=== PATIENT | male | born 1955 | race Caucasian/White ===

== ENCOUNTER 2021-12-22 09:39 | Outpatient (CLI) | payer MEDICARE, BC, SELFPAY ==
[2021-12-22 11:27] LABS: Cholesterol* 167 mg/dL (90-199); HDL Cholesterol* 52 mg/dL (>=40); LDL Cholesterol Calculated 100 mg/dL (<100); Triglycerides* 76 mg/dL (40-149)
[2021-12-22 11:59] LABS: PSA Screen* 0.53 ng/mL (0.10-4.00)
[2021-12-23 10:23] LABS: Glucose* 102 mg/dL (60-115)
== END 2021-12-22 09:40 | disposition home or self-care (01) ==
PROVIDERS: PCP Family Medicine; Visit Provider Family Medicine
DX: Z00.00 Encounter for general adult medical examination without abnormal findings (principal); Z13.1 Encounter for screening for diabetes mellitus; Z12.5 Encounter for screening for malignant neoplasm of prostate; Z13.6 Encounter for screening for cardiovascular disorders
CPT/HCPCS: 80061; 82947; 84153

== ENCOUNTER 2022-09-20 13:23 | Emergency (ER) | payer MEDICARE, BC, SELFPAY ==
[2022-09-20] VITALS (11 sets, daily range): BP systolic 129–158; BP diastolic 90–100; PULSE 57–69; RESP 16; TEMP 36.7; O2SAT 96–100; BMI 27.6
--- NOTE | 2022-09-20 14:24 | ED_ITS ---
HPI - Dizziness General Time Seen by Provider: 14:24 Date Seen: 09/20/22 Chief Complaint: Dizziness/Vertigo Stated Complaint: Dizzy Time Seen by Provider: 09/20/22 13:31 Source: patient and RN notes reviewed Mode of arrival: ambulatory Limitations: no limitations History of Present Illness HPI Narrative: Patient is a 67-year-old male coming to the ER with complaint of dizziness that was bothering him today. His has a blood pressure cuff, she checked his at home after he is complaining of feeling dizzy, with this had a sense of imbalance, denied any sense of spinning sensation at home. She found his blood pressure to be 159/102 I believe. States his blood pressure is never been that elevated before. Remembers last summer when he was in for a physical it was maybe 120. He is not on any medications. Has never been diagnosed with hypertension, he believes his LDL to be around 100 and his HDL to be around 50 when it has been checked before, no diagnosis of hyperlipidemia. He has had no cardiac history before not during any of this did he have any sense of anything in his chest. He states there is no palpitations, no chest pain, no regular hea rtbeat. He never felt any respiratory symptoms with it. He is feeling a bit better now. When he was feeling dizzy at home he had a sense of maybe slight imbalance. He absolutely denied vertigo at home. However, when he was lying here on the ER bed with his head closed and reclining back, he did feel a sense of spinning sensation per his report. Gone when I am talking to him. He was able to complete crossword puzzle in the lobby waiting to come back. He notes no visual changes, double vision, no blurry vision. No headaches, no head trauma. No numbness tingling weakness anywhere. Speech is been good throughout. He has never smoked tobacco but states he has a significant marijuana history. He notes looking at a picture in the bathroom when he was feeling this way, the picture just looked more intense. He walks about 6 miles 5 times a week. As far as family history, dad is in his 90s and Mom is in late 80s. He believes his mom is had arrhythmia issues, both parents may have had a blood pressure and cholesterol issues. His dad had malignant melanoma removed. There are no strokes, no ischemic disease that he is aware of. elicited complaint: dizziness and disequilibrium Related Data Home Medications Medication Instructions Recorded Confirmed No Known Home Medications 12/22/21 09/20/22 Allergies Allergy/AdvReac Type Severity Reaction Status Date / Time No Known Allergies Allergy Verified 09/20/22 13:34 Review of Systems Status of ROS: Reports: 10 or more systems reviewed and unremarkable except as noted in History and below PFSH PFSH Family History Father Melanoma Mother No problems noted. Social History Narrative: SOCIAL HISTORY: He is without children. 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 He exercises almost daily doing walking/biking. [employer] clubs, yoga. HABITS: No tobacco or alcohol. marijuana gummies 2-3 times per week because he enjoys it. It helped his creative side and he enjoys painting. FAMILY HISTORY: Father diagnosed with melanoma. Smoking Status: Never smoker Do you use any of these nicotine containing products: None Second hand tobacco smoke exposure: No How often do you have a drink containing alcohol: never AUDIT-C Alcohol total score: 0 Non-prescribed substance use: marijuana (any form) Little interest or pleasure in doing things: several days Feeling down, depressed, or hopeless: several days Exam Const: Vital Signs, click to edit/add: Vital Signs - 24 hr 09/20/22 13:31 09/20/22 14:36 Temperature 98.1 F Pulse Rate [Pulse Oximeter] 62 Respiratory Rate 16 Blood Pressure [Ri ght Upper Arm] 158/100 H Pulse Oximetry 96 99 Oxygen Delivery Me thod Room Air Documenting provider has reviewed patient's vital signs: yes Common normals: no apparent distress, average body habitus, oriented x3, no limitations, healthy appearing, alert and well nourished General appearance: cooperative, comfortable, well kempt and well developed HENMT: Common normals: normocephalic, head/scalp atraumatic, hearing grossly normal bilaterally (Has bilateral hearing aids in) and external ears normal Head and scalp: normocephalic and atraumatic External ear: external ears norm al Eye: Common normals: PERRL, EOMs intact bilaterally, conjunctivae normal and no scleral icterus Conjunctiva: conjunctiva(e) normal Pupil: PERRL Neck & C-Spine: Common normals: full ROM, no lymphadenopathy, supple, no meningeal signs, no JVD and thyroid normal Thyroid: thyroid normal Resp: Common normals: normal respiratory effort, no retractions, no use of accessory muscles and clear to auscultation bilaterally Auscultation: clear to auscultation bilaterally Cardio: Common normals: no JVD GI: Common normals: Normal to inspection, nondistended, normoactive bowel sounds present, soft to palpation, non-tender, no hepatosplenomegaly and no masses Palpation: soft and no hepatosplenomegaly Extremity: Other: No lower extremity edema Neuro: Common normals: oriented x3, moves all extremities, no focal motor deficits, no sensory deficits noted and gait normal Sensorium/orientation: alert Meningeal signs: no meningeal signs Speech: speech normal Psych: Appearance: well kempt Course Course Hospital Course: Patient's systolic blood pressure is 135 when I went in, next blood pressure was 150s over 90s. Did review with him that he certainly may be developing hypertension. Will get appropriate labs, have him on cardiac monitoring and pulse oximetry. We discussed head CT which he would like to proceed with. NIH currently is 0. I do not think that this is stroke pathology but will ensure no changes with the CT of his head. Will see how he is feeling in a bit. Reevaluation(s) Reevaluation #1: Have reviewed patient's normal workup. He is feeling better. Blood pressure is 129/90 currently. We are going to discharge to home for further ongoing outpatient evaluation and have him schedule follow-up in clinic. He will monitor blood pressure at home. Time: 16:12 Vital Signs Vital signs: Initial Vital Signs Temperature 98.1 F 09/20/22 13:31 Temperature Source Temporal Artery Scan 09/20/22 13:31 Pulse Rate 62 09/20/22 13:31 Respiratory Rate 16 09/20/22 13:31 Blood Pressure 158/100 H 09/20/22 13:31 Blood Pressure Mean 119 H 09/20/22 13:31 Blood Pressure Position Sitting 09/20/22 13:31 Pulse Oximetry 96 09/20/22 13:31 Oxygen Delivery Method Room Air 09/20/22 13:31 Vital Signs Temperature 98.1 F 09/20/22 13:31 Pulse Rate 62 09/20/22 13:31 Respiratory Rate 16 09/20/22 13:31 Blood Pressure 158/100 H 09/20/22 13:31 Pulse Oximetry 96 09/20/22 13:31 Oxygen Delivery Method Room Air 09/20/22 13:31 Temperature 98.1 F 09/20/22 13:31 Pulse Rate 62 09/20/22 13:31 Respiratory Rate 16 09/20/22 13:31 Blood Pressure 158/100 H 09/20/22 13:31 Pulse Oximetry 99 09/20/22 14:36 Oxygen Delivery Method Room Air 09/20/22 13:31 MDM - Dizziness Lab Data Attestation: I reviewed the patient's lab results. Labs: Lab Results 09/20/22 Range/Units 15:05 WBC 4.88 (4.50-11.00) K/uL RBC 5.21 (4.30-5.90) m/uL Hgb 15.4 (13.5-17.5) gm/dL Hct 45.2 (37.0-53.0) % MCV 87 (80-100) fL MCH 30 (26-34) pg MCHC 34 (32-36) gm/dL RDW Coeff of Hannah 12.3 (11.5-15.5) % Plt Count 185 (140-440) K/uL Neut % (Auto) 71.1 (42.0-72.0) % Lymph % (Auto) 20.5 (20-44) % Dare % (Auto) 7.2 (0.0-11.0) % Eos % (Auto) 0.8 (0.0-7.0) % Baso % (Auto) 0.4 (0.0-3.0) % Neut # (Auto) 3.47 (1.7-7.0) K/uL Lymph # (Auto) 1.00 (0.90-2.90) K/uL Dare # (Auto) 0.40 (0.00-0.90) K/UL Eos # (Auto) 0.04 (0.00-0.50) K/uL Baso # (Auto) 0.02 (0.00-0.30) K/uL Sodium 138 (135-149) mmol/L Potassium 4.4 (3.6-5.1) mmol/L Chloride 103 (96-114) mmol/L Carbon Dioxide 29 (20-32) mmol/L BUN 17 (7-30) mg/dL Creatinine 0.9 (0.5-1.5) mg/dL Estimated Creat Clear 76.35 Estimated GFR 94 ml/min Glucose 95 (60-115) mg/dL Calcium 9.6 (8.4-10.6) mg/dL Total Bilirubin 1.5 (0.1-1.5) mg/dL AST 29 (12-35) U/L ALT 31 (4-50) U/L Alkaline Phosphatase 70 (40-150) U/L Total Protein 7.4 (6.0-8.3) g/dL Albumin 4.7 (3.3-5.0) g/dL Imaging Data CT scan - head: Attestation: I have reviewed the pertinent imaging results. Radiologist's impression: Patient: CHALINO GONZALEZ Facility:?[facility] Patient ID:?[id number] Site Patient ID:?[id number]. Site :?[id number] Study:?CT Head w/o Contrast-09/20/2022 3:04:00 PM Ordering Physician:Eric Bedoya Final Report: INDICATION: Dizzy TECHNIQUE: Noncontrast axial CT of the head. Coronal and sagittal reformats. Bone and soft tissue algorithms. COMPARISON: No relevant comparison studies available at this institution. FINDINGS: The ventricles and cortical sulci are mildly prominent. No midline shift, hydrocephalus, or herniation. No acute intracranial hemorrhage or abnormal extra-axial fluid collection. Thomas-white matter differentiation is grossly maintained. White matter attenuation appears within normal limits. Incidental prominent perivascular space along the inferior left basal ganglia. There is partial empty sella configuration. The midline structures are otherwise unremarkable. There is mild calcific intracranial atherosclerotic plaquing. The bony calvarium appears grossly intact. Lobulated mucosal thickening is noted throughout the bilateral maxillary and ethmoid sinuses. The mastoid air cells are clear. The included orbits are unremarkable. IMPRESSION: 1. No CT evidence of acute intracranial abnormality. 2. Mild generalized cerebral volume loss. 3. Lobulated maxillary and ethmoid sinus mucosal thickening, suggestive of mucous retention cysts/polyps. Please note that all CT scans at this facility use dose modulation, iterative reconstruction, and/or weight-based dosing when appropriate to reduce radiation dose to as low as reasonably achievable. Dictated by Mei Sanchez MD @ 09/20/2022 3:20:46 PM (Electronic Signature) Critical Care Time Critical Care Time Critical Care Time: No Discharge Plan Discharge Clinical Impression: Elevated blood pressure reading, Dizziness Patient Disposition: Home, Self-Care Condition: Improved Instructions: Low-Sodium Diet (ED), Hypertension (ED), Dizziness (ED) Additional Instructions: Recommend monitoring your blood pressure at home, record values and take to follow-up visit. Would like you to get a follow-up in clinic certainly within the next week to recheck blood pressure. If your values are remaining elevated, you could be developing hypertension. Lifestyle modification is always recommended, have given you handout on low sodium to start with. If at any point to have increase in dizziness, developed spinning or vertigo, have any neurologic symptoms concerning for stroke, any associated chest pain or shortness of breath, do recommend return to the ED for further evaluation in the interim. Activity Level: Activity as Tolerated Discharge Diet: Heart Healthy (2 gm sodium, low fat) Prescriptions: No Action No Known Home Medications Follow Up/Referrals: Remy Calvo MD [Primary Care Provider] - Stand Alone Forms: [employer] Info Instructions
--- NOTE | 2022-09-20 14:36 | CRLHL7_ITS ---
For Patients: As a result of the Century Cures Act, medical imaging exams and procedure reports are released immediately into your electronic medical record. You may view this report before your referring provider. If you have questions, please contact your health care provider. INDICATION: Dizzy TECHNIQUE: Noncontrast axial CT of the head. Coronal and sagittal reformats. Bone and soft tissue algorithms. COMPARISON: No relevant comparison studies available at this institution. FINDINGS: The ventricles and cortical sulci are mildly prominent. No midline shift, hydrocephalus, or herniation. No acute intracranial hemorrhage or abnormal extra-axial fluid collection. Thomas-white matter differentiation is grossly maintained. White matter attenuation appears within normal limits. Incidental prominent perivascular space along the inferior left basal ganglia. There is partial empty sella configuration. The midline structures are otherwise unremarkable. There is mild calcific intracranial atherosclerotic plaquing. The bony calvarium appears grossly intact. Lobulated mucosal thickening is noted throughout the bilateral maxillary and ethmoid sinuses. The mastoid air cells are clear. The included orbits are unremarkable. IMPRESSION: 1. No CT evidence of acute intracranial abnormality. 2. Mild generalized cerebral volume loss. 3. Lobulated maxillary and ethmoid sinus mucosal thickening, suggestive of mucous retention cysts/polyps. Please note that all CT scans at this facility use dose modulation, iterative reconstruction, and/or weight-based dosing when appropriate to reduce radiation dose to as low as reasonably achievable. Dictated by Mei Sanchez MD @ 09/20/2022 3:20:46 PM (Electronically Signed)
[2022-09-20 15:31] LABS: Basophils Absolute Auto 0.02 K/uL (0.00-0.30); Basophils Percent Auto 0.4 % (0.0-3.0); Eosinophils Absolute Auto 0.04 K/uL (0.00-0.50); Eosinophils Percent Auto 0.8 % (0.0-7.0); Hematocrit 45.2 % (37.0-53.0); Hemoglobin* 15.4 gm/dL (13.5-17.5); Lymphocytes Percent Auto 20.5 % (20-44); Mean Corpuscular HGB Conc 34 gm/dL (32-36); Mean Corpuscular Hemoglobin 30 pg (26-34); Mean Corpuscular Volume 87 fL (80-100); Monocytes Percent Auto 7.2 % (0.0-11.0); Neutrophils Absolute Auto 3.47 K/uL (1.7-7.0); Neutrophils Percent Auto 71.1 % (42.0-72.0); Platelet Count* 185 K/uL (140-440); RDW Coefficient of Variation % 12.3 % (11.5-15.5); Red Blood Count 5.21 m/uL (4.30-5.90); White Blood Count* 4.88 K/uL (4.50-11.00)
[2022-09-20 15:35] LABS: Albumin* 4.7 g/dL (3.3-5.0); Chloride* 103 mmol/L (96-114); Potassium* 4.4 mmol/L (3.6-5.1); Slide Review Reflex No; Sodium* 138 mmol/L (135-149)
[2022-09-20 15:37] LABS: Bilirubin Total* 1.5 mg/dL (0.1-1.5); Carbon Dioxide* 29 mmol/L (20-32); Creatinine* 0.9 mg/dL (0.5-1.5); Est. Creatinine Clearance* 76.35; Estimated Glomerular Filt Rate 94 ml/min
[2022-09-20 15:38] LABS: Alanine Aminotransferase* 31 U/L (4-50); Alkaline Phosphatase* 70 U/L (40-150); Aspartate Amino Transferase* 29 U/L (12-35); Blood Urea Nitrogen* 17 mg/dL (7-30); Calcium* 9.6 mg/dL (8.4-10.6); Glucose* 95 mg/dL (60-115); Total Protein* 7.4 g/dL (6.0-8.3)
== END 2022-09-20 16:23 | disposition home or self-care (01) ==
PROVIDERS: Emergency Provider Family Medicine; PCP Family Medicine
DX: R42 Dizziness and giddiness (principal); R03.0 Elevated blood-pressure reading, without diagnosis of hypertension
CPT/HCPCS: 36415; 70450; 80053; 85025; 93005; 94761; 99284; 99285

== ENCOUNTER 2022-11-24 19:14 | Emergency (ER) | payer MEDICARE, BC, SELFPAY ==
[2022-11-24 19:24] VITALS: BP 129/85; PULSE 82; RESP 18; TEMP 36.9; O2SAT 95; BMI 27.9
--- NOTE | 2022-11-24 19:44 | ED.GENADULT ---
HPI - General Adult General Chief complaint: Unspecified Complaint, Adult Stated complaint: Covid+ wants a prescription Tired Time Seen by Provider: 11/24/22 19:29 History of Present Illness HPI narrative: This 67-year-old male comes in stating that he took a home test for COVID yesterday which turned positive. He comes in requesting a prescription for Paxil of id. He does not have any cough or shortness of breath. His primary symptoms are loss of sense of taste and smell and generalized fatigue. He states that he has been sleeping a lot over the last day or so. He does not report any fevers. He states that he is not on any other medications and otherwise is in good health. Related Data Previous Rx's Medication Instructions Recorded nirmatrelvir 150 mg-ritonavir 100 See Rx Instructions PO .COMPLEX 11/24/22 mg tablets in a dose pack #20 ea (Paxlovid) Allergies Allergy/AdvReac Type Severity Reaction Status Date / Time No Known Allergies Allergy Verified 11/24/22 19:26 Review of Systems Status of ROS: Reports: 10 or more systems reviewed and unremarkable except as noted in History and below Narrative: Constitutional: No fevers, no weight gain or loss. Eyes: No discharge. No vision changes. HENT: No congestion, no sore throat, no ear pain. Cardiovascular: No chest pain, no palpitations. Respiratory: No shortness of breath, no wheezes, no cough. Gastrointestinal: No abdominal pain, no vomiting, no diarrhea. Genitourinary: No dysuria, no hematuria. Musculoskeletal: Normal range of motion. Skin: No rashes, no pruritis. Neurological: No dizziness, weakness, speech change. He reports a loss of sense of taste and smell. Endo/Heme/Allergies: No bruising or bleeding. No polydipsia. Pysch: no suicidality, no anxiety, no insomnia. All other systems reviewed and are negative. PFSH PFSH Family History Father Melanoma Mother No problems noted. Social History Narrative: SOCIAL HISTORY: He is without children. 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 He exercises almost daily doing walking/biking. clubs, yoga. HABITS: No tobacco or alcohol. marijuana gummies 2-3 times per week because he enjoys it. It helped his creative side and he enjoys painting. FAMILY HISTORY: Father diagnosed with melanoma. Smoking Status: Never smoker Do you use any of these nicotine containing products: None Second hand tobacco smoke exposure: No How often do you have a drink containing alcohol: never AUDIT-C Alcohol total score: 0 Non-prescribed substance use: marijuana (any form) Little interest or pleasure in doing things: several days Feeling down, depressed, or hopeless: several days Exam Narrative: Exam Narrative: Constitutional: Well-developed, well-nourished, no acute distress. HEENT: Normocephalic, atraumatic. Neck: Normal range of motion. Nontender. Supple. Heart: Regular. No murmurs. Normal rate. Intact distal pulses. Lungs: Clear to auscultation. No chest discomfort. No wheezes, rhonchi, or rales. Abdomen: Normal bowel sounds. Nontender. No rebound tenderness. Genitalia: Deferred. Back: No midline tenderness. Normal range of motion. Extremities: Normal range of motion. No injury. Skin: Intact. No rash. Warm. No erythema or pallor. Neurologic: No altered sensation. No weakness. Alert and oriented. Psychiatric: No suicidality. No anxiety or depression. No insomnia. Nursing notes and vitals signs are reviewed. Const: Vital Signs, click to edit/add: Vital Signs - 24 hr 11/24/22 19:24 Temperature 98.5 F Pulse Rate [Right Pulse Oximeter] 82 Respiratory Rate 18 Blood Pressure [Ri ght Upper Arm] 129/85 Pulse Oximetry 95 Oxygen Delivery Me thod Room Air Course Vital Signs Vital signs: Initial Vital Signs Temperature 98.5 F 11/24/22 19:24 Temperature Source Temporal Artery Scan 11/24/22 19:24 Pulse Rate 82 11/24/22 19:24 Respiratory Rate 18 11/24/22 19:24 Blood Pressure 129/85 11/24/22 19:24 Blood Pressure Mean 99 11/24/22 19:24 Blood Pressure Position Sitting 11/24/22 19:24 Pulse Oximetry 95 11/24/22 19:24 Oxygen Delivery Method Room Air 11/24/22 19:24 Vital Signs Temperature 98.5 F 11/24/22 19:24 Pulse Rate 82 11/24/22 19:24 Respiratory Rate 18 11/24/22 19:24 Blood Pressure 129/85 11/24/22 19:24 Pulse Oximetry 95 11/24/22 19:24 Oxygen Delivery Method Room Air 11/24/22 19:24 Temperature 98.5 F 11/24/22 19:24 Pulse Rate 82 11/24/22 19:24 Respiratory Rate 18 11/24/22 19:24 Blood Pressure 129/85 11/24/22 19:24 Pulse Oximetry 95 11/24/22 19:24 Oxygen Delivery Method Room Air 11/24/22 19:24 Medical Decision Making MDM Narrative Medical decision making narrative: This patient arrives reporting a positive test for COVID that was performed at home yesterday. He is requesting a prescription for Paxil of id. His exam and vital signs are normal today. He is not showing any sign of respiratory distress. A prescription for Paxil of it is provided. I did describe signs and symptoms that indicate a need for return and re-evaluation. Discharge Plan Discharge Clinical Impression: COVID-19 Patient Disposition: Home, Self-Care Condition: Stable Additional Instructions: Take medication as prescribed. Use [id number] medicines also as needed and directed. Return if worsening symptoms happen. Prescriptions: New Paxlovid 150-100 mg tablets,dose pack See Rx Instructions PO .COMPLEX Qty: 20 0RF Rx Instructions: orally per package directions Follow Up/Referrals: Remy Calvo MD [Primary Care Provider] - Stand Alone Forms: [employer] Info Instructions
[2022-11-24 20:00] VITALS: BP 124/84; PULSE 79; RESP 18; TEMP 36.9; O2SAT 95
== END 2022-11-24 19:54 | disposition home or self-care (01) ==
PROVIDERS: Emergency Provider Emergency Medicine Emergency Medical Services; PCP Family Medicine
DX: U07.1 COVID-19 (principal)
CPT/HCPCS: 99283; 99284

== ENCOUNTER 2023-04-18 08:31 | Outpatient (CLI) | payer MEDICARE, BC, SELFPAY | END 2023-04-18 08:32 | disposition home or self-care (01) | LOC: NFLDREF 04-19 22:06 | PROVIDERS: PCP Family Medicine; Referring Provider Family Medicine; Visit Provider Family Medicine | DX: R73.03 Prediabetes (principal) | CPT/HCPCS: 82947 ==

== ENCOUNTER 2023-05-03 09:27 | Outpatient (CLI) | payer MEDICARE, BC, SELFPAY ==
--- NOTE | 2023-05-03 09:45 | CRLHL7_ITS ---
For Patients: As a result of the Cures Act, medical imaging exams and procedure reports are released immediately into your electronic medical record. You may view this report before your referring provider. If you have questions, please contact your health care provider. Indication: Abdominal aortic aneurysm screening Comparison: None available. Technique: Real-time and grayscale and color Doppler imaging was performed of the abdominal aorta and bilateral common iliac arteries. Findings: The proximal abdominal aorta was not well visualized due to shadowing from bowel gas. The mid and distal abdominal aorta measure 2.0 x 1.8, and 1.8 x 1.7 cm respectively in the AP and transverse dimensions. The right and left iliac artery were measured at 1.5 x 1.3 and 1.5 x 1.5 cm respectively. Impression: No sonographic evidence of abdominal aortic aneurysm although the suprarenal portion could not be visualized due to shadowing from bowel gas. Dictated by Carlos Griffin MD @ 05/03/2023 8:50:10 PM (Electronically Signed)
== END 2023-05-03 09:28 | disposition home or self-care (01) ==
LOC: US 09:27
PROVIDERS: PCP Family Medicine; Visit Provider Family Medicine
DX: Z13.6 Encounter for screening for cardiovascular disorders (principal)
CPT/HCPCS: 76706

== ENCOUNTER 2024-12-03 09:35 | Outpatient (CLI) | payer MEDICARE, BC, SELFPAY | END 2024-12-03 09:36 | disposition home or self-care (01) | LOC: NFLDREF 12-04 16:45 | PROVIDERS: PCP Family Medicine; Referring Provider Family Medicine; Visit Provider Family Medicine | DX: Z13.6 Encounter for screening for cardiovascular disorders (principal) | CPT/HCPCS: 80061 ==